=== PATIENT | female | born 1975 | race Caucasian/White ===

== ENCOUNTER 2021-09-15 12:09 | Emergency (ER) | payer OTHER ==
[~2021-09-15 12:09] MED LIST: BACTROBAN NASAL1 G1; IBUPROFEN600 MG PO; OMNICEF 300 MG300 MG PO; PREDNISONE 50 M50 MG PO; ZOFRAN4 MG PO; ZOVIRAX 800 MG800 MG PO
[2021-09-15] MEDS ORDERED: TORADOL 10 MG T10 MG PO (14:01)
== END 2021-09-15 14:42 | disposition home or self-care (01) ==
LOC: ER1 12:09
DX: S20.212A Contusion of left front wall of thorax, initial encounter (principal); F17.200 Nicotine dependence, unspecified, uncomplicated; W01.0XXA Fall on same level from slipping, tripping and stumbling without subsequent striking against object, initial encounter; Y92.009 Unspecified place in unspecified non-institutional (private) residence as the place of occurrence of the external cause
CPT/HCPCS: 71046; 71100; 96372; 99283; J1885

== ENCOUNTER → 2022-01-15 | Outpatient (CLI) | payer OTHER ==
[~2022-01-15] MED LIST changes: +TORADOL 10 MG T10 MG PO
[2022-01-15 17:46] LABS: HEMOGLOBIN 14.7 gm/dl (12.3-15.3); RED BLOOD COUNT 4.92 M/UL (4.00-5.10); WHITE BLOOD COUNT 6.7 K/UL (4.5-11.0)
[2022-01-15 18:02] LABS: BUN/CREATININE RATIO 12 (0-10)
== END ==
LOC: LAB 15:58
PROVIDERS: Nurse Practitioner Family
DX: R68.89 Other general symptoms and signs (principal); R79.89 Other specified abnormal findings of blood chemistry; E78.5 Hyperlipidemia, unspecified; R73.09 Other abnormal glucose; E55.9 Vitamin D deficiency, unspecified
CPT/HCPCS: 36415; 80053; 80061; 83036; 84443; 85025

== ENCOUNTER → 2022-05-29 | Outpatient (CLI) | payer OTHER | LOC: MAMO 10:57 | DX: R92.8 Other abnormal and inconclusive findings on diagnostic imaging of breast (principal) | CPT/HCPCS: 76641; 77066; G0279 ==